=== PATIENT | female | born 1975 | race Caucasian/White ===

== ENCOUNTER 2018-10-06 14:28 | Emergency (ER) | payer OTHER ==
[~2018-10-06] VITALS: Ht 175.3 cm; Wt 64.0 kg
[2018-10-06] MEDS ORDERED: SODIUM CHLORIDE 0.9% 1000ML 1,000 ML ONE (14:42)
[2018-10-06] MEDS ORDERED: IOPAMIDOL 370 MG/ML 200 ML INFUS..BTL INJ ONE (14:46)
[2018-10-06] MEDS ORDERED: POTASSIUM CHLORIDE 10MEQ EA PO ONE (15:30)
[2018-10-06] MEDS ORDERED: SODIUM CHLORIDE 0.9% 1000ML 1,000 ML IV SCH (15:45)
[2018-10-06] MEDS ORDERED: POTASSIUM CHLORIDE 20 MEQ TAB CR PO ONE (15:50)
--- NOTE | 2018-10-06 15:54 | Diagnostic Imaging Report ---
CT of the abdomen and pelvis, with contrast, 10/06/2018. History: Abdominal pain, nausea. Comparison: None available. Technique: Multidetector CT scanning of the abdomen and pelvis was performed from the level of the lung bases to the inferior pubic rami after intravenous administration of contrast. No oral contrast was given. Coronal and sagittal multiplanar reformations were obtained. RADIATION DOSE: Total DLP: 450 mGy*cm Dose modulation, iterative reconstruction, and/or weight based adjustment of the mA/kV was utilized to reduce the radiation dose to as low as reasonably achievable. Discussion: LUNG BASES: No visualized abnormalities. ABDOMEN: The liver appears elongated measuring 18 cm, which may be secondary to a Serafin's lobe. A 6 mg hypodensity is present in the right lobe of the liver which is too small to characterize. The gallbladder, biliary tree, spleen, pancreas, adrenal glands, and kidneys are normal. The hepatic vein, portal vein, and splenic vein are patent. The abdominal aorta is within normal limits for size. Evaluation of bowel is limited without oral contrast. Large amount of ingested material is present within the stomach. There is no bowel dilatation. The appendix is visualized and is normal. There is no evidence of free fluid. Multiple nonspecific subcentimeter mesenteric lymph nodes are present with slight haziness of the central mesenteric fat. PELVIS: The bladder, uterus, and adnexa are normal in appearance. There is no evidence of free fluid or adenopathy. BONES AND SOFT TISSUES: Degenerative changes are present throughout the lumbar spine without evidence of lytic or sclerotic lesion. IMPRESSION: 1. Multiple small nonspecific mesenteric nodes with haziness of the mesenteric fat is likely reactive, likely related to gastroenteritis. Large amount of ingested material is present within the stomach. There is no focal bowel abnormality. 2. Otherwise unremarkable exam. No evidence of cholelithiasis, nephrolithiasis, or appendicitis. Signed by: Ac Sun on 10/06/2018 3:51 PM
--- NOTE | 2018-10-06 17:03 | NUR ---
PT RETURNED WITH [facility] STATES PHARMACIST WILL NOT FILL PRESCRIPTION. [facility] CALLED AND MD SPOKE TO [facility] PHARMACIST AT [facility] AND CALLED IN RX. [phone]
== END 2018-10-06 16:12 | disposition home or self-care (01) ==
LOC: FSED 14:28
DX: R10.12 Left upper quadrant pain (principal); R10.32 Left lower quadrant pain; R11.0 Nausea; R19.7 Diarrhea, unspecified; K52.9 Noninfective gastroenteritis and colitis, unspecified; E87.6 Hypokalemia
CPT/HCPCS: 74177; 80053; 81003; 81025; 85025; 99284; J7030; Q9967